=== PATIENT | female | born 1940 | race Caucasian/White ===

== ENCOUNTER 2017-05-31 13:44 | Outpatient (CLI) | payer MEDICARE, OTHER ==
--- NOTE | 2017-05-31 15:22 | RAD ---
FOUR VIEWS LUMBAR SPINE: History: Lumbar radiculopathy. Sciatic pain radiating down the right leg, x 1 year. Comparison: None. FINDINGS: Five lumbar type vertebral bodies. In the neutral position, no significant spondylolisthesis. There i s mild degenerative change at T12-L1, L1-2. Upon flexion and extension, no abnormal motion. IMPRESSION: Degenerative changes along the thoracolumbar junction and upper lumbar spine. POS: HASMUKH
--- NOTE | 2017-05-31 15:56 | MRI ---
MRI LUMBAR SPINE WITHOUT CONTRAST: 05/31/17 Multiplanar and multisequential imaging lumbar spine obtained. INDICATIONS: Low back pain, lumbar radiculopathy with sciatic pain radiating to the right leg. FINDINGS: Lumbar vertebrae maintain height. there are moderate degenerative changes noted with osteophytes from the anterior vertebrae. Loss of disc spaces seen at all levels of the lumbar spine. Slight posterior subluxation at L2-3 noted. At L1-2, there is a diffuse broad based disc bulge flattening the thecal sac. Mild to moderate facet hypertrophy. Mild central canal stenosis. At L2-3, slight posterior subluxation is noted above with associated diffuse disc bulge flattening th e thecal sac. Facet hypertrophy. Mild central canal stenosis. At L3-4, broad based disc bulge combined with facet hypertrophy results in mild central canal stenosi s. At L4-5, diffuse disc bulge with asymmetric bulge/protrusion to the right flattens the thecal sac mor e prominent on the right of midline. There is facet hypertrophy. Moderate central canal stenosis. Dis placement of the traversing right L5 nerve root. No significant foraminal encroachment. At L5-S1, mild diffuse disc bulge. Moderate facet hypertrophy; however, no significant central canal or foraminal stenosis. IMPRESSION: 1. At L4-5, broad based bulge with asymmetric protrusion paracentrally on the right compresses t he thecal sac and displaces the traversing right L5 nerve root. There is moderate central canal steno sis at this level as described above. 2. Diffuse disc bulge at the other lumbar levels results in mild central canal stenosis as descr ibed above. POS: HASMUKH
== END 2017-05-31 13:45 | disposition home or self-care (01) ==
LOC: TBSIIMAG 13:44
PROVIDERS: ATTEND Surgery
DX: M47.26 Other spondylosis with radiculopathy, lumbar region (principal); M48.061 Spinal stenosis, lumbar region without neurogenic claudication
CPT/HCPCS: 72110; 72148

== ENCOUNTER 2017-06-06 13:27 | Outpatient (CLI) | payer MEDICARE, OTHER ==
[2017-06-06 16:06] LABS: Hemoglobin 14.5 g/dL (12.0-16.0); Mean Corpuscular HGB CONC 34.1 g/dL (32.0-36.0); Mean Corpuscular Hemoglobin 30.8 pg (27.0-31.0); Mean Corpuscular Volume 90.2 fl (81.0-99.0); Mean Platelet Volume 7.8 fL (7.4-10.4); Platelet Count 156 thou/uL (130-400); RBC Distribution Width 12.4 % (11.5-14.5); White Blood Cell (WBC) Count 5.3 thou/uL (4.8-10.8)
[2017-06-06 16:10] LABS: PTT 29.8 SEC (22.9-36.1); Prothrombin Time 13.3 SEC (12.0-14.7)
[2017-06-06 16:29] LABS: Anion Gap 11 mmol/L (10-20); BUN (Urea Nitrogen) 12 mg/dL (9.8-20.1); Calc. Creatinine Clearance 0 mL/min (70-130); Calcium 10.1 mg/dL (7.8-10.44); Carbon Dioxide 29 mmol/L (23-31); Chloride 95 mmol/L (98-107); Estimated GFR-MDRD 75; Glucose 157 mg/dL (83-110); Potassium 3.2 mmol/L (3.5-5.1); Sodium 132 mmol/L (136-145)
--- NOTE | 2017-06-06 21:01 | EKG ---
Test Reason : Blood Pressure : / mmHG Vent. Rate : 075 BPM Atrial Rate : 075 BPM P-R Int : 154 ms QRS Dur : 072 ms QT Int : 388 ms P-R-T Axes : 034 032 114 degrees QTc Int : 433 ms Normal sinus rhythm Cannot rule out Anterior infarct , age undetermined (Doubtful) Abnormal ECG No previous ECGs available Confirmed by MAUREEN RIVERS ([id number]) on 06/06/2017 9:01:05 PM Referred By: DANA Confirmed By:MAUREEN RIVERS
== END 2017-06-06 13:28 | disposition home or self-care (01) ==
LOC: LABBT 13:27
PROVIDERS: ATTEND Surgery
DX: Z01.818 Encounter for other preprocedural examination (principal); M51.16 Intervertebral disc disorders with radiculopathy, lumbar region; R94.31 Abnormal electrocardiogram [ECG] [EKG]
CPT/HCPCS: 80048; 85027; 85610; 85730; 93005; 93010

== ENCOUNTER 2017-06-07 07:34 | Observation (INO) | payer MEDICARE, OTHER ==
[2017-06-06 13:57] VITALS: BMI 28.8
[2017-06-07] MEDS ORDERED: Clindamycin/D5W 900 mg/50 ml Premix Bag ONE (08:55)
[2017-06-07] MEDS ORDERED: Levofloxacin 500 mg/D5W 100 ml Premix Bag ONE (08:56)
[2017-06-07] MEDS ORDERED: Sodium Chloride 0.9% 10 ML ONE (10:36)
[2017-06-07] MEDS ORDERED: Thrombin 5000 UNITS/5 ML VIAL ONE (10:36)
[2017-06-07] MEDS ORDERED: Bacitracin Zinc Ointment 30 gm TUBE ONE (10:36)
[2017-06-07] MEDS ORDERED: Fentanyl 100 MCG/2 ML VIAL ONE ×2 (10:57→13:32)
[2017-06-07] MEDS ORDERED: Ondansetron HCl/PF 4 MG/2 ML Vial ONE ×2 (12:41→13:09)
[2017-06-07] MEDS ORDERED: HYDROmorphone 0.5 MG/0.5 ML SYRINGE ONE (12:55)
[2017-06-07] MEDS ORDERED: PHENYLEPHRINE-NS 100 MCG/ML 10 ML SYRINGE ONE (13:09)
[2017-06-07] MEDS ORDERED: PROPOFOL 200 MG/20 ML VIAL ONE (13:09)
[2017-06-07] MEDS ORDERED: Lidocaine 1% PF 5 ML VIAL ONE (13:09)
[2017-06-07] MEDS ORDERED: Glycopyrrolate 0.2 MG/ML 5 ML SYRINGE ONE (13:09)
[2017-06-07] MEDS ORDERED: PROVENTIL INHALER 6.7 G (200 INHALATIONS) ONE (13:09)
[2017-06-07] MEDS ORDERED: Ondansetron HCl/PF 4 MG/2 ML Vial IVP PRN (13:20)
[2017-06-07] MEDS ORDERED: Morphine Sulfate 2 MG/ML SYRINGE SLOW IVP PRN (13:20)
[2017-06-07] MEDS ORDERED: Promethazine HCl 25 MG/ML VIAL IM PRN ×2 (13:20→15:20)
[2017-06-07] MEDS ORDERED: HYDROmorphone 2 MG/ML VIAL SLOW IVP PRN (13:20)
[2017-06-07] MEDS ORDERED: Meperidine HCl/PF 25 MG/ML VIAL SLOW IVP PRN (13:20)
[2017-06-07] MEDS ORDERED: Promethazine HCl 25 MG/ML VIAL SLOW IVP PRN (13:20)
--- NOTE | 2017-06-07 14:28 | OP ---
SURGEON: Tomy Carver M.D. ROOM SERVICE RUNNER: None. PREPROCEDURE DIAGNOSES: Low back and right leg pain with right L4-L5 disk extrusion and right L5 rad iculopathy. POSTPROCEDURE DIAGNOSES: Low back and right leg pain with right L4-L5 disk extrusion and right L5 ra diculopathy. PROCEDURES PERFORMED: 1. Right L4-L5 hemilaminotomy, foraminotomy, and diskectomy. 2. Use of operative microscope for microdissection. PROCEDURE IN DETAILS: After informed consent was obtained from the patient, the patient brought to O R 12. Proper patient pause and identification was carried out. She was placed under excellent gener al endotracheal anesthesia and positioned prone on the operating table. All appropriate points were padded. Identified a midline linear yareli to allow approach to the L4-L5 segment. This region was st erilely cleansed, prepared, and draped. Proper patient pause and identification was carried out. Th e wound was then opened with a combination of sharp, monopolar and blunt dissection proceeded over th e right L4-L5 segment and hemilamina. A localization film confirmed our area of interest. Microscop e was brought in the field for microdissection. We performed a right L4-L5 hemilaminotomy and forami notomy with removal of the yellow ligament. We worked over the shoulder of the traversing right L5 n erve root identified disk material. This was removed and we had excellent decompression of the right L5 nerve root. Copious irrigation occurred throughout as did maximizing hemostasis. The wound was then irrigated and closed in anatomic layers following the sprinkling of vancomycin powder. The delaney ent then emerged from anesthesia.
[2017-06-07] MEDS ORDERED: Ketorolac Tromethamine 30 MG/ML VIAL ONE (14:32)
[2017-06-07] MEDS ORDERED: Fleet Enema 133 ML BOT PR PRN (15:20)
[2017-06-07] MEDS ORDERED: Zolpidem Tartrate 5 MG TAB PO PRN (15:20)
[2017-06-07] MEDS ORDERED: diphenhydrAMINE 50 MG/ML VIAL IVP PRN (15:20)
[2017-06-07] MEDS ORDERED: traMADol HCl 50 MG TAB PO PRN ×2 (15:20)
[2017-06-07] MEDS ORDERED: tiZANidine HCl 4 MG TAB PO PRN (15:20)
[2017-06-07] MEDS ORDERED: Bisacodyl 10 MG SUPP PR PRN (15:20)
[2017-06-07] MEDS ORDERED: Promethazine 25 MG TAB PO PRN (15:20)
[2017-06-07] MEDS ORDERED: Acetaminophen 325 MG TAB PO PRN (15:20)
[2017-06-07] MEDS ORDERED: Milk Of Magnesia 30 ML UDCUP PO PRN (15:20)
[2017-06-07] MEDS ORDERED: Promethazine HCl 12.5 MG SUPP PR PRN (15:20)
[2017-06-07] MEDS ORDERED: Mag-Al 1200 mg/1200 mg/30 ML UDCUP PO PRN (15:20)
[2017-06-07] MEDS ORDERED: HYDROcodone/Acetaminophen 7.5/325 mg Tablet PO PRN ×2 (15:20)
[2017-06-07] MEDS ORDERED: Ondansetron HCl/PF 4 MG/2 ML Vial SLOW IVP PRN (15:20)
[2017-06-07] MEDS ORDERED: Acetaminophen 650 MG Suppository PR PRN (15:20)
[2017-06-07] MEDS ORDERED: Morphine 4 MG/ML Carpuject SLOW IVP PRN (15:20)
[2017-06-07] MEDS ORDERED: diphenhydrAMINE 25 MG CAP PO PRN (15:20)
[2017-06-07] MEDS ORDERED: Ketorolac Tromethamine 30 MG/ML VIAL IVP PRN (15:21)
[2017-06-07] MEDS ORDERED: PROVENTIL INHALER 6.7 G (200 INHALATIONS) INH PRN (15:26)
[2017-06-07] MEDS ORDERED: Morphine 5 MG/ML SYRINGE SLOW IVP PRN ×2 (15:45)
[2017-06-07] MEDS: Sodium Chloride 0.9% 1,000 ML IV SCH (16:03)
[2017-06-07] MEDS ORDERED: Mometasone Furoate 120 PUFF 220 MCG INH SCH (18:30)
[2017-06-07] MEDS ORDERED: Loratadine 10 MG TAB PO SCH (21:00)
[2017-06-07] MEDS ORDERED: Atorvastatin Calcium 10 MG TAB PO SCH (21:00)
[2017-06-07] MEDS: Clindamycin/D5W 900 MG in Premix Bag 1 BAG IVPB SCH (22:15)
[2017-06-08] MEDS: Clindamycin/D5W 900 MG in Premix Bag 1 BAG IVPB SCH (05:56)
[2017-06-08] MEDS ORDERED: Levothyroxine Sodium 100 MCG TAB PO SCH (06:00)
[2017-06-08] MEDS: Sodium Chloride 0.9% 1,000 ML IV SCH (06:11)
[2017-06-08 07:59] VITALS: BP 138/64; TEMP 97.8
[2017-06-08] MEDS ORDERED: metFORMIN 850 MG TAB PO SCH (08:00)
[2017-06-08] MEDS ORDERED: Amlodipine 5 MG TAB PO SCH (09:00)
--- NOTE | 2017-06-08 09:24 | PRG ---
DATE OF SERVICE: 06/08/2017 Ms. Crespo is postoperative day 1 from right L4-L5 diskectomy. She is doing well with improvement in her leg pain, has met criteria for dismissal. We went over both intra and postoperative issues and she will be dismissed.
[2017-06-13] MEDS ORDERED: Alendronate Sodium 70 mg Tablet PO SCH (06:00)
== END 2017-06-08 09:50 | disposition home or self-care (01) ==
LOC: SDC 07:34 → 3SE 14:58
PROVIDERS: ADMIT Surgery; ATTEND Surgery
PROC: 01NB0ZZ Release Lumbar Nerve, Open Approach (ICD-10-PCS; principal; 2017-06-07)
DX: M51.16 Intervertebral disc disorders with radiculopathy, lumbar region (principal); Z88.5 Allergy status to narcotic agent
CPT/HCPCS: 63030; 76001; 80048; 85027; 85610; 85730; 93005; 94640; 94664; 96365; 96366; 96374 ×2; 96375; G0378; 93010; A4216; J0131; J1170; J1885; J1956; J2001; J2270; J2405; J2704; J3010; J3370; J3490